=== PATIENT | female | born 1955 | race Caucasian/White ===

== ENCOUNTER → 2020-09-27 09:47 | Outpatient (CLI) | payer OTHER, SELFPAY ==
--- NOTE | 2020-09-27 09:55 | US_ITS ---
APPROVED REPORT Exam Type: Ankle to Brachial Index Skull Splitter: RT Dayne(R) Indications Claudication: Rest Pain: Patient's blood pressure today was 196/108. Patient states she did not take her blood pressure medication today. We advised patient to go to our Emergency Department but she states she will go home and take her medication and re check. We told her if it remains elevated she must report to an ER or call her physician immediately. Risk Factors Hypertension Hyperlipidemia Pressures/Indices Right Indices Left Indices Brachial 195.00 mmHg Brachial 195.00 mmHg Low Thigh 201.00 mmHg 1.03 Low Thigh 218.00 mmHg 1.12 Calf 225.00 mmHg 1.15 Calf 228.00 mmHg 1.17 Ankle(PT) 222.00 mmHg 1.14 Ankle(PT) 226.00 mmHg 1.16 Ankle(DP) 203.00 mmHg 1.04 Ankle(DP) 0.00 mmHg 0.00 Digit 201.00 mmHg 1.03 Digit 205.00 mmHg 1.05 Findings RT YULISSA=1.1 LT YULISSA=1.2 RT TBI=1.0 LT TBI=1.1 Normal waveforms Normal pulses Conclusion RT YULISSA=1.1 LT YULISSA=1.2 RT TBI=1.0 LT TBI=1.1 Normal waveforms Normal pulses Normal appearing resting noninvasive lower extremity arterial study. Electronically signed by : Deniz Ochoa MD 09/27/2020 16:35:58
== END ==
PROVIDERS: PCP Nurse Practitioner Family; Visit Provider Nurse Practitioner Family
DX: I70.213 Atherosclerosis of native arteries of extremities with intermittent claudication, bilateral legs (principal)
CPT/HCPCS: 93923

== ENCOUNTER → 2021-03-28 18:09 | Outpatient (CLI) | payer OTHER, MEDICARE, SELFPAY ==
--- NOTE | 2021-03-28 18:29 | XR_ITS ---
PROCEDURE INFORMATION: Exam: XR Right Elbow Exam date and time: 03/28/2021 6:29 PM Age: 66 years old Clinical indication: Swelling; Elbow; Right; Additional info: Effusion, right elbow TECHNIQUE: Imaging protocol: XR Right elbow. Views: 1 or 2 views. COMPARISON: CR [id number]-RT-3 VIEWS 11/23/2014 2:38 PM FINDINGS: Bones/joints: Normal. Soft tissues: Normal. IMPRESSION: No acute findings.
== END ==
PROVIDERS: PCP Nurse Practitioner Family; Visit Provider Nurse Practitioner Family
DX: M25.421 Effusion, right elbow (principal)
CPT/HCPCS: 73070

== ENCOUNTER → 2021-10-01 08:03 | Outpatient (CLI) | payer MEDICARE, SELFPAY ==
--- NOTE | 2021-10-01 08:06 | US_ITS ---
FINAL REPORT CLINICAL HISTORY: ABN RESULTS OF LIVER FUNCTION STUDIES FINDINGS: Sonographic images of the abdomen were obtained. The liver has increased echogenicity which is consistent with fatty infiltration. There are two echogenic nonshadowing foci within the gallbladder which may represent polyps. There is no evidence of biliary ductal dilatation. The common hepatic duct measures 4 mm, which is within normal limits. Limited images of the pancreas are unremarkable. The spleen size is normal. The right kidney measures 11.1 cm in length. The left kidney measures 10.7 cm in length. There is a right renal cyst measuring 2.5 cm and there are left renal cysts measuring up to 2.7 cm. There is no evidence of hydronephrosis. The aorta has an unremarkable appearance. Limited images of the inferior vena cava are unremarkable. IMPRESSION: Fatty liver. Findings in the gallbladder may represent polyps. Bilateral renal cysts. Reviewed, Interpreted and Dictated by Lan Parekh III, MD Transcribed by Mitzi Nick Authenticated and [facility]
== END ==
PROVIDERS: PCP Nurse Practitioner Family; Visit Provider Nurse Practitioner Family
DX: R94.5 Abnormal results of liver function studies (principal)
CPT/HCPCS: 76700

== ENCOUNTER 2021-10-22 06:46 | Emergency (ER) | payer MEDICARE, SELFPAY ==
--- NOTE | 2021-10-22 | CT_ITS ---
PROCEDURE INFORMATION: Exam: CT Maxillofacial Without Contrast, Sinus Exam date and time: 10/22/2021 7:48 AM Age: 66 years old Clinical indication: Patient HX: Ringing of ears/dizziness TECHNIQUE: Imaging protocol: CT Maxillofacial without contrast. Focus on the sinuses. Radiation optimization: All CT scans at this facility use at least one of these dose optimization techniques: automated exposure control; mA and/or kV adjustment per patient size (includes targeted exams where dose is matched to clinical indication); or iterative reconstruction. COMPARISON: CT (Scanogram, HEAD, Brain 350mm LAT/AP (OUT)) 10/22/2021 7:45 AM FINDINGS: Frontal sinuses: Normal. No air-fluid levels. Ethmoid sinuses: Normal. No air-fluid levels. Sphenoid sinuses: Normal. No air-fluid levels. Maxillary sinuses: Normal. No air-fluid levels. Ostiomeatal units are patent. Nasal cavity: There are mariam bullosa of the middle turbinates bilaterally. There is mild rightward nasal septal deviation with a small spur. Orbital cavities: Orbits are normal. Globes are unremarkable. Bones/joints: Unremarkable. Soft tissues: Unremarkable. IMPRESSION: No significant sinus mucosal disease.
--- NOTE | 2021-10-22 | CT_ITS ---
PROCEDURE INFORMATION: Exam: CT Head Without Contrast Exam date and time: 10/22/2021 7:45 AM Age: 66 years old Clinical indication: Patient HX: Ringing of ears/dizziness TECHNIQUE: Imaging protocol: Computed tomography of the head without contrast. Radiation optimization: All CT scans at this facility use at least one of these dose optimization techniques: automated exposure control; mA and/or kV adjustment per patient size (includes targeted exams where dose is matched to clinical indication); or iterative reconstruction. COMPARISON: No relevant prior studies available. FINDINGS: Brain: There is no acute intracranial hemorrhage or mass effect. Mild diffuse volume loss is within the range of normal for patient age. There are small vessel ischemic changes within the periventricular and subcortical white matter, but the normal kay/white matter delineation is maintained. Chronic appearing lacunar infarcts involve the right basal ganglia. Cerebral ventricles: No ventriculomegaly. Paranasal sinuses: Visualized sinuses are unremarkable. No fluid levels. Mastoid air cells: Visualized mastoid air cells are well aerated. Bones/joints: Unremarkable. No acute fracture. Soft tissues: Unremarkable. IMPRESSION: No acute intracranial hemorrhage or edema.
[2021-10-22 06:46] VITALS: BP 161/88; PULSE 80; RESP 18; TEMP 36.7; O2SAT 97; BMI 24.0
[2021-10-22 07:03] VITALS: BP 153/85; PULSE 81; RESP 18; O2SAT 98
[2021-10-22 07:23] VITALS: BP 147/81; PULSE 75; RESP 18; O2SAT 97
[2021-10-22 08:03] VITALS: BP 139/73; PULSE 72; RESP 18; O2SAT 97
[2021-10-22 08:15] VITALS: BP 146/79; PULSE 68; RESP 18; TEMP 36.7; O2SAT 97
--- NOTE | 2021-10-22 08:15 | PC.NURSE ---
contacted ENT office, spoke with dayan zelaya. Appt made for pt for today at 1130. Appt information relayed to pt daughter who in at [facility].
[2021-10-22 09:49] LABS: Alanine Aminotransferase 76 U/L (12-78); Albumin Level 4.8 g/dl (3.5-5.0); Albumin/Globulin Ratio 1.2 (1.1-1.8); Alkaline Phosphatase 112 U/L (38-126); Anion Gap 16.8 mEq/L (5-15); Aspartate Amino Transferase 74 U/L (14-36); Bilirubin,Total 0.3 mg/dl (0.2-1.3); Blood Urea Nitrogen 19 mg/dl (7-17); C-Reactive Protein 1.8 mg/L (0-4); Calcium 9.7 mg/dl (8.4-10.2); Carbon Dioxide 27 mmol/L (22.0-30.0); Chloride 105 mmol/L (98-107); Estimated Glomerular Filt Rate 84 ml/min (>60); GFR (African American) 102 ML/MIN (>60); Globulin 3.9 g/dL (1.3-3.2); Glucose 161 mg/dl (74-100); NT Pro Brain Natriuretic Pep. 22.3 pg/mL (0-125); Potassium 4.8 mmoL/L (3.5-5.1); Procalcitonin 0.086 ng/mL (0.0-2.0); Sodium 144 mmol/L (136-145); Total Protein,Serum 8.7 g/dl (6.3-8.2)
--- NOTE | 2021-10-22 10:10 | PC.NURSE ---
1010- triage and past medical history entered at time, pt arrived at 0646, pt was triaged and history taken per dayan chapa at that time under downtime procedures. Pt information entered by this nurse when system was back up.
[2021-10-22 10:54] LABS: Hemoglobin 14.1 g/dL (12.2-16.2); Mean Corpuscular HGB Conc 32.7 g/dL (31.8-35.4); Mean Corpuscular Hemoglobin 28.7 pg (27.0-31.2); Mean Corpuscular Volume 87.6 fl (81-99); Mean Platelet Volume 7.7 fl (7.4-10.4); Platelet Count 331 K/mm3 (142-424); Red Blood Count 4.91 M/mm3 (4.20-5.40); Red Cell Distribution Width 12.3 % (11.5-17.5); White Blood Count 7.9 K/mm3 (4.8-10.8)
[2021-10-22 10:55] LABS: Basophils # 0.1 K/mm3 (0-0.2); Eosinophils # 0.1 K/mm3 (0.0-0.4); Eosinophils % 1.2 % (0.1-12.0); Erythrocyte Sedimentation Rate 20 mm/hr (0-30); Lymphocytes # 1.1 K/mm3 (0.7-4.5); Monocytes # 0.2 K/mm3 (0.1-1.0); Monocytes % 2.8 % (1.7-9.3); Neutrophils # 6.4 K/mm3 (1.8-7.8)
--- NOTE | 2021-10-24 07:36 | HMH.EDDIZZ ---
Discharge Plan Disposition Patient Disposition: Home, Self-Care Chief Complaint: Dizziness Prescriptions Prescriptions: No Action rosuvastatin 10 mg tablet 10 mg PO Label Comments: TAKE 1 TABLET BY MOUTH ONCE DAILY FOR CHOLESTEROL valsartan 80 mg tablet 80 mg PO Jardiance 25 mg tablet 25 mg PO Label Comments: TAKE 1 TABLET BY MOUTH ONCE DAILY IN THE MORNING metformin 500 mg tablet 500 mg PO Label Comments: TAKE 1 TABLET BY MOUTH ONCE DAILY WITH BREAKFAST FOR 7 DAYS THEN INCREASE TO 1 TABLET WITH MORNING MEAL AND 1 TABLET WITH EVENING MEAL Clinical Impressions Clinical Impression: Vertigo Instructions Patient Instructions: Vertigo Discharge ED Provider: Dominic Sr HPI General Chief Complaint: Dizziness Stated Complaint: dizzy, weakness, ears ringing Time Seen by Provider: 10/22/21 07:00 Mode of Arrival: Ambulatory Source of Information: Patient, Relative and Medical Record Limitations: No Limitations Description of Symptoms (Recalled from ER Triage Doc. by RN): Pt reports ringing in elizabeth ears, dizzy intermittently for approx 1 month. Pt reports has been prescribed meclizine but states she is not taking it, report is make her more dizzy and drowsy. History of Present Illness HPI Narrative: progressive dizzyness over the last month - no fever or rash or trauma MD complaint: dizziness Onset (ago): week(s) Timing: intermittent History of similar episodes: No History of trauma: No Severity: moderate Associated symptoms: denies other symptoms Related Data Home Medications Medication Instructions Recorded Confirmed empagliflozin 25 mg tablet 25 mg PO 10/15/21 10/22/21 (Jardiance) metformin 500 mg tablet 500 mg PO 10/15/21 10/22/21 rosuvastatin 10 mg tablet 10 mg PO 10/15/21 10/22/21 valsartan 80 mg tablet 80 mg PO 10/15/21 10/22/21 Allergies Allergy/AdvReac Type Severity Reaction Status Date / Time No Known Allergies [facility] Medical History (Updated 10/22/21 @ 12:42 by Lilia Monaco RN) Diabetes Hyperlipidemia Vertigo Social History (Updated 10/22/21 @ 10:11 by Elier Lyman MD) Smoking Status: Never smoker alcohol intake: never substance use type: denies use current occupational status: employed Travel in the last 8 weeks: None ROS Obtained: Yes Systems reviewed as appropriate & no additional complaints except as documented Physical Exam General General appearance: alert Head Head exam: normocephalic Eye Eye exam: Present PERRL and EOMI; Absent nystagmus ENT ENT exam: Present normal oropharynx, mucous membranes dry and TM's normal bilaterally Neck Neck exam: Present full ROM and trachea midline Respiratory Respiratory exam: Present normal lung sounds bilaterally Cardiovascular Cardiovascular exam: Present regular rate, systolic murmur and +S4 Abdominal Exam Abdominal exam: Present soft Extremities Exam Extremities exam: Present full ROM; Absent edema Neurological Exam Neurological exam: Present alert, oriented X3 and CN II-XII intact Psychiatric Psychiatric exam: Present normal affect Skin Skin exam: Absent rash Medical Decision Making Medical Records Medical records reviewed: Yes I reviewed the patient's medical records. Joe Inquiry Pt receiving controlled substance: No Vital Signs: 10/22/21 06:46 10/22/21 07:03 10/22/21 07:23 Temperature 98.0 F Temperature Source Oral Pulse Rate 81 75 Pulse Rate [Right Radial] 80 Respiratory Rate 18 18 18 Blood Pressure 153/85 H 147/81 H Blood Pressure [Right Arm] 161/88 H Blood Pressure Mean [Right Arm] 112 Blood Pressure Source Automatic Cuff Automatic Cuff Blood Pressure Source [Right Arm] Automatic Cuff Blood Pressure Position Sitting Blood Pressure Position [Right Arm] Sitting 02 Sat by Pulse Oximetry 97 98 97 Oxygen Delivery Method Room Air Room Air Room Air 10/22/21 08:
== END 2021-10-22 08:15 | disposition home or self-care (01) ==
LOC: ER 09:30
PROVIDERS: Emergency Provider Emergency Medicine; PCP Nurse Practitioner Family
DX: R42 Dizziness and giddiness (principal); R53.1 Weakness; H93.13 Tinnitus, bilateral
CPT/HCPCS: 70450; 70486; 80053; 83880; 84145; 85025; 85651; 86140; 96374; 99285

== ENCOUNTER → 2022-01-15 07:39 | Outpatient (CLI) | payer MEDICARE, SELFPAY ==
--- NOTE | 2022-01-15 07:39 | US_ITS ---
FINAL REPORT CLINICAL HISTORY: Gallbladder polyp FINDINGS: Ultrasound images of the right upper quadrant were obtained. The liver parenchyma is increased in echogenicity. The gallbladder is well visualized and the wall appears normal. Two polyps are noted in the gallbladder. There are no gallstones. The common duct is normal. There is a 3.0 x 1.4 cm right parapelvic renal cyst. IMPRESSION: Fatty liver. Gallbladder polyps. Parapelvic right renal cyst. Reviewed, Interpreted and Dictated by Irwin Chan MD Transcribed by Vahid Morse Authenticated and [facility]
== END ==
PROVIDERS: PCP Nurse Practitioner Family; Visit Provider Surgery
DX: K82.4 Cholesterolosis of gallbladder (principal)
CPT/HCPCS: 76705

== ENCOUNTER → 2022-07-15 08:04 | Outpatient (CLI) | payer MEDICARE, SELFPAY ==
--- NOTE | 2022-07-15 08:10 | XR_ITS ---
FINAL REPORT TECHNIQUE: Bone densitometry calculations of the lumbar spine and left hip were obtained. CLINICAL HISTORY: post menopausal FINDINGS: Using L1-4, the bone mineral density of the spine is 0.884 g/cm2, corresponding to T-score of -1.5. Using the left hip, the bone mineral density of the femoral neck is 0.637 g/cm2, corresponding to a T-score of -2.5. Using the right hip, the bone mineral density of the femoral neck is 0.727 g/cm2, corresponding to a T-score of -1.8. NOTE: T-score: Standard deviation compared with peak bone mass of young adult mean. *Following the recommendations of the International Society of Bone Densitometry, classification of hip BMD is based on the lower of two T-scores; total hip or femoral neck. IMPRESSION: Osteoporosis: Lowest T-score is at or below -2.5. This patient's T-score meets the World Health Organization criteria for osteoporosis. FRAX was not reported because some of the T-scores are at or below-2.5. Reviewed, Interpreted and Dictated by Lan Parekh III, MD Transcribed by Herminia Urena Authenticated and [facility]
--- NOTE | 2022-07-15 08:10 | MM_ITS ---
PROCEDURE INFORMATION: Exam: Bilateral Screening 3D Mammography Exam date and time: 07/15/2022 8:06 AM Age: 67 years old Clinical indication: Screening mammogram TECHNIQUE: Imaging protocol: Bilateral Screening tomosynthesis and 2D mammography including computer-aided detection (CAD) when performed. COMPARISON: MAMMO SCREENING DIGITAL BILAT 07/25/2014 3:56 PM FINDINGS: MAMMOGRAPHY: Breast composition: There are scattered areas of fibroglandular density. Mass: None. Architectural distortion: No new or suspicious architectural distortion. Calcifications: No new or suspicious calcifications are present Asymmetric density: No new or suspicious asymmetric density is present Skin thickening: None. Axillary adenopathy: None. IMPRESSION: No mammographic evidence of malignancy. Recommend annual screening mammography unless otherwise clinically indicated. ASSESSMENT: BI-RADS category 1: Negative
== END ==
PROVIDERS: PCP Nurse Practitioner Family; Visit Provider Nurse Practitioner Family
DX: Z12.31 Encounter for screening mammogram for malignant neoplasm of breast (principal); Z78.0 Asymptomatic menopausal state; Z13.220 Encounter for screening for lipoid disorders
CPT/HCPCS: 77063; 77067; 77080

== ENCOUNTER → 2022-07-22 08:12 | Outpatient (CLI) | payer MEDICARE, SELFPAY ==
--- NOTE | 2022-07-22 08:12 | US_ITS ---
FINAL REPORT CLINICAL HISTORY: eval gallbladder polyp COMPARISON: 01/15/2022 FINDINGS: GALLBLADDER ULTRASOUND Technique: Ultrasound images of the right upper quadrant were obtained specifically the gallbladder. Findings: Limited images of the liver parenchyma is normal in echogenicity. Again noted are small echogenic foci in the gallbladder, likely polyps. Common bile duct measures 2 mm. There is a 2.4 cm cyst in the lower pole the right kidney. IMPRESSION: Probable gallbladder polyps. Reviewed, Interpreted and Dictated by Lan Parekh III, MD Transcribed by Jessica Toro Authenticated and [facility]
== END ==
PROVIDERS: PCP Nurse Practitioner Family; Visit Provider Surgery
DX: R10.11 Right upper quadrant pain (principal); K82.4 Cholesterolosis of gallbladder
CPT/HCPCS: 76705

== ENCOUNTER 2023-07-19 10:15 | Outpatient (CLI) | payer MEDICARE, SELFPAY ==
--- NOTE | 2023-07-19 10:20 | MM_ITS ---
PROCEDURE INFORMATION: Exam: MG Bilateral Screening 3D Mammography Exam date and time: 07/19/2023 10:18 AM Age: 68 years old Clinical indication: Screening examination . Family history of breast carcinoma. TECHNIQUE: Imaging protocol: Bilateral Screening tomosynthesis and 2D mammography including computer-aided detection (CAD) when performed. COMPARISON: 1. MG MM DIG SCREENING MAMM BI W/CAD 07/15/2022 8:06 AM 2. MG MAMMO SCREENING DIGITAL BILAT 07/25/2014 3:56 PM FINDINGS: MAMMOGRAPHY: Breast composition: There are scattered areas of fibroglandular density. Mass: No suspicious masses. Architectural distortion: No suspicious distortion. Calcifications: No suspicious calcifications. Asymmetric density: None. Skin thickening: None. Axillary adenopathy: None. IMPRESSION: No mammographic evidence of malignancy. Annual screening is recommended unless otherwise clinically indicated. ASSESSMENT: BI-RADS Category 1: Negative
== END 2023-07-19 23:59 | disposition home or self-care (01) ==
LOC: RAD 10:15
PROVIDERS: PCP Nurse Practitioner Family; Visit Provider Nurse Practitioner Family
DX: Z12.31 Encounter for screening mammogram for malignant neoplasm of breast (principal)
CPT/HCPCS: 77063; 77067

== ENCOUNTER 2023-08-02 08:14 | Outpatient (CLI) | payer MEDICARE, SELFPAY ==
--- NOTE | 2023-08-02 08:26 | US_ITS ---
FINAL REPORT CLINICAL HISTORY: gallbladder polyp follow up COMPARISON: None FINDINGS: Sonographic images of the right upper quadrant were obtained. The pancreas is partially obscured.The liver has an unremarkable appearance. There is a 7 mm echogenic focus along the anterior gallbladder which previously measured 4 mm, likely polyp. There is no evidence of biliary ductal dilatation.The common duct measures 3 mm. There is a 2.3 cm lower pole right kidney cyst. IMPRESSION: Gallbladder polyp, increased in size from previous. Right kidney cyst. Reviewed, Interpreted and Dictated by Lan Parekh III, MD Transcribed by Jessica Toro Authenticated and [facility]
== END 2023-08-02 23:59 | disposition home or self-care (01) ==
LOC: RAD 08:15
PROVIDERS: PCP Nurse Practitioner Family; Visit Provider Surgery
DX: K82.4 Cholesterolosis of gallbladder (principal)
CPT/HCPCS: 76705

== ENCOUNTER 2024-02-03 07:45 | Outpatient (CLI) | payer MEDICARE, SELFPAY ==
--- NOTE | 2024-02-03 07:46 | US_ITS ---
FINAL REPORT CLINICAL HISTORY: polyp COMPARISON: 08/02/2023 FINDINGS: Sonographic images of the right upper quadrant were obtained. The pancreas is partially obscured. There is no focal hepatic abnormality. The portal vein is at the upper limits of normal measuring 13 mm. Again noted is an echogenic focus in the gallbladder wall that measures 4 mm. This may represent a polyp or cholesterolosis. The common bile duct measures 3 mm. There is a 1.4 cm probable parapelvic cyst in the right kidney. IMPRESSION: Gallbladder wall focus may represent a polyp or cholesterolosis. Probable parapelvic cyst. Reviewed, Interpreted and Dictated by Lan Parekh III, MD Transcribed by Jonelle Smith Authenticated and [facility]
== END 2024-02-03 23:59 | disposition home or self-care (01) ==
LOC: RAD 07:46
PROVIDERS: PCP Nurse Practitioner Family; Visit Provider Surgery
DX: K82.4 Cholesterolosis of gallbladder (principal)
CPT/HCPCS: 76705

== ENCOUNTER 2024-07-11 07:05 | Outpatient (CLI) | payer MEDICARE, SELFPAY ==
--- NOTE | 2024-07-11 | CA_ITS ---
APPROVED REPORT EXAM: Comprehensive 2D, Doppler, and color-flow Echocardiogram Humane Officer: DORIS Yan, RVS Ht: 5 ft 11 in Wt: 195lbs BSA: 2.09 BP: 145/80 mmHg Rhythm: Abn EKG Indications: SOB, Hx-pleural effusion, HLD, DM 2D Dimensions Left Atrium 3.70 cm F: 2.7 - 3.8 LA Volume 61.20 mL LA Volume Index 29.291434 mL/m2 (M/F) 16-34 EF AP4 54.00 % GL Strain -20.2 % M-Mode Dimensions RVDd 1.77 cm (0.9-2.6) LA Diam 3.91 cm (1.9-4.0) LVDd 4.95 cm (3.5-5.7) LVDs 3.34 cm (3.5-5.7) IVSd 1.09 cm (0.6-1.1) PWd 0.89 cm (0.6-1.1) EF (Teich) 60.70% EPSs 0.69 cm FS 32.50% EDV (Teich) 115.50 mL TAPSE 2.25 (<1.7) ESV (Teich) 45.40 mL LV Diastology E Decel Time 250 (160-240 msec) E/A Ratio 0.83 MED A' 11.30 cm/s LAT A' 11.00 cm/s Aortic Valve DIANA Index 0.79 cm2/m2 AoV Peak Jeovanny. 171.0 (50-130 cm/s) AO Peak GR. 11.60 mmHg AO Mean GR. 6.00 (<5 mmHg) AO VTI 41.3 (18-25 cm) DIANA (VTI) 1.70 (2.5-4.5 cm2) Mitral Valve MV A Velocity 99.0 (40-130 cm/s) E/A Ratio 0.83 MV Mean Gr. 1.60 (<2mmHg) Tricuspid Valve TR P. Velocity 225.00 cm/s RAP Estimate 10.00 mmHg RVSP 30.20 mmHg Left Ventricle The left ventricle is normal size. The left ventricular systolic function is normal. The left ventricular ejection fraction is within the normal range. There is increased LV wall thickness. There is normal LV segmental wall motion. Transmitral Doppler flow pattern suggests impaired LV relaxation. LVEF is 60%. Right Ventricle The right ventricle is normal size. The right ventricular systolic function is normal. Atria Left atrium is mildly dilated. Right atrium is mildly dilated. There is no Doppler evidence of interatrial shunt. Aortic Valve The aortic valve is mildly thickened. There is no aortic valvular stenosis. No aortic regurgitation is present. Mitral Valve The mitral valve is normal in structure. No evidence of mitral valve stenosis. Mild mitral regurgitation. Tricuspid Valve Tricuspid valve is grossly normal in structure and function. There is no tricuspid valve stenosis. Trace tricuspid regurgitation. RVSP is 20-25 mmHg. Pulmonic Valve The pulmonary valve is normal in structure. Trace pulmonic regurgitation. Great Vessels The aortic root is normal in size. IVC is normal in size and collapses >50% with inspiration. Pericardium There is no pericardial effusion. Other Information Study Quality: Adequate Conclusion Normal biventricular systolic function. Mild biatrial dilation. Mild MR, mild TR. Electronically signed by : Janett Saenz MD 07/16/2024 23:18:26
--- NOTE | 2024-07-11 07:15 | CT_ITS ---
PROCEDURE INFORMATION: Exam: CT Chest Without Contrast; Diagnostic Exam date and time: 07/11/2024 7:29 AM Age: 69 years old Clinical indication: Dyspnea; Additional info: Pleural effusion, dyspnea TECHNIQUE: Imaging protocol: Diagnostic computed tomography of the chest without contrast. Radiation optimization: All CT scans at this facility use at least one of these dose optimization techniques: automated exposure control; mA and/or kV adjustment per patient size (includes targeted exams where dose is matched to clinical indication); or iterative reconstruction. COMPARISON: US GALLBLADDER 02/03/2024 8:11 AM FINDINGS: Lungs: The lungs are clear. No acute infiltrates or suspicious pulmonary nodules identified. There is trace atelectasis at each lung base. Pleural spaces: Unremarkable. No pneumothorax. No pleural effusion. Heart: The heart is normal in size. No pericardial effusion. There are aortic valve calcifications. Coronary arteries: There is calcified coronary artery disease. Lymph nodes: Multiple small, benign-appearing axillary and mediastinal lymph nodes which do not reach pathologic size criteria. Vasculature: The thoracic aorta is nonaneurysmal. Liver: Small old calcified granulomas in the right lobe of the liver. Bones/joints: No acute osseous lesions. There is a vertebral hemangioma at T10. Soft tissues: Unremarkable. IMPRESSION: 1. No CT evidence of acute chest pathology. Minor dependent atelectasis of the lung bases. 2. Calcified coronary artery disease.
== END 2024-07-11 23:59 | disposition home or self-care (01) ==
LOC: RAD 07:06
PROVIDERS: PCP Nurse Practitioner Family; Visit Provider Nurse Practitioner Family
DX: J90 Pleural effusion, not elsewhere classified; J98.11 Atelectasis; I25.10 Atherosclerotic heart disease of native coronary artery without angina pectoris; I08.1 Rheumatic disorders of both mitral and tricuspid valves
CPT/HCPCS: 71250; 93306

== ENCOUNTER 2024-07-21 09:30 | Outpatient (CLI) | payer MEDICARE, SELFPAY ==
--- NOTE | 2024-07-21 09:33 | MM_ITS ---
PROCEDURE INFORMATION: Exam: MG Bilateral Screening 3D Mammography Exam date and time: 07/21/2024 9:47 AM Age: 69 years old Clinical indication: Screening examination TECHNIQUE: Imaging protocol: Bilateral Screening tomosynthesis and 2D mammography including computer-aided detection (CAD) when performed. COMPARISON: 1. MG MM DIG SCREENING MAMM BI W/CAD 07/19/2023 10:18 AM 2. MG MM DIG SCREENING MAMM BI W/CAD 07/15/2022 8:06 AM FINDINGS: MAMMOGRAPHY: Breast composition: There are scattered areas of fibroglandular density. Mass: No suspicious masses. Architectural distortion: None. Calcifications: No suspicious calcifications. Asymmetric density: None. Skin thickening: None. Axillary adenopathy: None. IMPRESSION: No mammographic evidence of malignancy. Annual screening is recommended unless otherwise clinically indicated. ASSESSMENT: BI-RADS Category 1: Negative.
== END 2024-07-21 23:59 | disposition home or self-care (01) ==
LOC: RAD 09:30
PROVIDERS: PCP Nurse Practitioner Family; Visit Provider Nurse Practitioner Family
DX: Z12.31 Encounter for screening mammogram for malignant neoplasm of breast (principal); R92.323 Mammographic fibroglandular density, bilateral breasts
CPT/HCPCS: 77063; 77067

== ENCOUNTER 2024-07-28 08:19 | Outpatient (CLI) | payer MEDICARE, SELFPAY ==
--- NOTE | 2024-07-28 08:21 | XR_ITS ---
FINAL REPORT TECHNIQUE: Bone densitometry calculations of the lumbar spine and bilateral hips were obtained. CLINICAL HISTORY: SCREENING COMPARISON: 07/15/2022 FINDINGS: Using L1-4, the bone mineral density of the spine is 0.930 g/cm2, corresponding to T-score of -1.1. Using the left hip, the bone mineral density of the femoral neck is 0.690 g/cm2, corresponding to a T-score of -2.1. Using the right hip, the bone mineral density of the femoral neck is 0.727 g/cm?, corresponding to a T-score of -1.8. NOTE: T-score: Standard deviation compared with peak bone mass of young adult mean. *Following the recommendations of the International Society of Bone densitometry, classification of hip BMD is based on the lower of two T-scores; total hip or femoral neck. IMPRESSION: Diminished bone mineral density of the lumbar spine and bilateral hips consistent with osteopenia. Reviewed, Interpreted and Dictated by Irwin Chan MD Transcribed by Leanne Mc Authenticated and [facility]
== END 2024-07-28 23:59 | disposition home or self-care (01) ==
LOC: RAD 08:19
PROVIDERS: PCP Nurse Practitioner Family; Visit Provider Nurse Practitioner Family
DX: M85.89 Other specified disorders of bone density and structure, multiple sites (principal); Z13.9 Encounter for screening, unspecified
CPT/HCPCS: 77080

== ENCOUNTER 2025-02-08 07:59 | Outpatient (CLI) | payer MEDICARE, SELFPAY ==
--- OUTSIDE RECORDS SUMMARY | 2025-02-08 08:04 | XMS_ITS | Clinical Summary ---
Author Organization Healthcare Address [address] [place] [address] Care Team Providers Care Auto Camp Attendant Name Role Phone Luz Macedo APRN Primary Care Provider + [phone] Immunizations Immunization Administration Dates Next Due Influenza, seasonal, injectable 02/12/2016 Family History Medical History Relation Name Comments Cardiac disorder Father Arthritis Mother Relation Name Status Comments Father Mother Social History Tobacco Use Types Packs/Day Years Used Date Smoking Tobacco: Never Alcohol Use Standard Drinks/Week Comments No 0 (1 standard drink = 0.6 oz pur e alcohol) Comments Unknown Sex and Gender Information Value Date Recorded Sex Assigned at Not on file Legal Sex Female 8:51 PM EDT Gender Identity Not on file Sexual Orientation Not on file Last Filed Vital Signs Vital Sign Reading Time Taken Comments Blood Pressure 175/82 11/26/2017 11:47 AM EDT Pulse 63 11/26/2017 11:47 AM EDT Temperature 36.4 C (97.5 F) 11/26/2017 11:47 AM EDT Respiratory Rate 14 11/26/2017 11:47 AM EDT Oxygen Saturation - - Inhaled Oxygen Concentration - - Weight 79.5 kg (175 lb 4.3 oz) 11/26/2017 11:47 AM EDT Height 180.3 cm (5' 11 ) 11/26/2017 11:47 AM EDT Body Mass Index 24.44 11/26/2017 11:47 AM EDT Plan of Treatment Not on file Care Teams Auto Camp Attendant Relationship Specialty Start Date End Date Luz Macedo APRN [address] [place] [address] PCP - General 07/12/20
--- OUTSIDE RECORDS SUMMARY | 2025-02-08 08:04 | XMS_ITS | Clinical Summary ---
[facility] [address] [place] [id number] Care Team Providers Care Pocket Machine Operator Name Role Phone Melania Hernandes ATIF Primary Care Provider [phone] Allergies No known active allergies Medications levocetirizine (XYZAL) 5 MG tablet Take 1 tablet by mouth Daily. 5 Active rosuvastatin (CRESTOR) 10 MG tablet Take 1 tablet by mouth Daily. for cholesterol 5 Active valsartan (DIOVAN) 160 MG tablet Take 1 tablet by mouth Every Morning. for blood pressure. 5 Active metFORMIN (GLUCOPHAGE) 500 MG tablet Take 1 tablet by mouth 2 (Two) Times a Day With Meals. Active Multiple Vitamins-Minera ls (ABC Complete Womens) tablet tablet Take 1 tablet by mouth Daily. 5 Active calcium carbonate (Calcium 600) 600 MG tablet Take 1 tablet by mouth 2 (Two) Times a Day With Meals. 5 Active alendronate (FOSAMAX) 70 MG tablet Take 1 tablet by mouth 1 (One) Time Per Week. Active aspirin 81 MG oral suspension Take 81 mL by mouth 1 (One) Time. 5 Active montelukast (SINGULAIR) 10 MG tablet Take 1 tablet by mouth Every Night. 5 Active spironolactone (ALDACTONE) 25 MG tablet Take 1 tablet by mouth Daily. 5 Active Januvia 50 MG tablet Take 1 tablet by mouth Daily. for diabetes. 5 Active acetaminophen (Tylenol) 325 MG tablet Take 2 tablets by mouth Every 6 (Six) Hours As Needed. 5 Active Tradjenta 5 MG tablet tablet TAKE 1 TABLET BY MOUTH EVERY DAY FOR FOR DIABETES Active escitalopram (LEXAPRO) 10 MG tablet Take 1 tablet by mouth every night at bedtime. Active Active Problems Problem Noted Date Diagnosed Date Physical deconditioning 10/18/2024 Assessment & Plan (10/18/2024 10:35 AM EDT): 10/04/24 MAXI- Unable to complete related to Shortness of air. 10/10/24 Nuclear Stress Test Low risk. Dyspnea Assessment & Plan (10/18/2024 10:35 AM EDT): 10/04/24 MAXI- Unable to complete related to Shortness of air. 10/10/24 Nuclear Stress Test Low risk. Reports recent normal pulmonary testing in [place] Assessment & Plan (10/04/2024 3:47 PM EDT): -Unable to complete MAXI related to shortness of air -check Edna/Nuclear Diabetes type 2 High cholesterol Assessment & Plan (10/18/2024 10:38 AM EDT): 03/29/2024 labs creatinine normal, cholesterol 142, triglycerides 54, HDL 58, LDL 72, eGFR 62, potassium normal, sodium normal, LFTs normal A1c 5.7, CBC normal. Hypertension Assessment & Plan (10/18/2024 10:37 AM EDT): At goal today. Start walking regimne Osteoporosis Assessment & Plan (10/18/2024 10:37 AM EDT): Start walking regimen Resolved Problems Problem Noted Date Diagnosed Date Resolved Date Chest pain, atypical 10/04/2024 025 Assessment & Plan (10/04/2024 3:47 PM EDT): -Unable to complete MAXI related to shortness of air -check Edna/Nuclear Family History Medical History Relation Name Comments Arthritis Father Diabetes type II Father HTN Father Hyperlipidemia Father Breast cancer Maternal Grandmother HTN Mother Kidney disease Mother Diabetes Sister Stroke Sister Relation Name Status Comments Father Maternal Grandmother Mother Sister Social History Tobacco Use Types Packs/Day Years Used Date Smoking Tobacco: Never Passive Smoke Exposure: Never Smokeless Tobacco: Never Tobacco Cessation:Counseling Given: Not Answered Alcohol Use Standard Drinks/Week Comments Never 0 (1 standard drink = 0.6 oz pur e alcohol) Abuse Screen Answer Date Recorded Unsafe at Home or Work/School Not on file Feels Threatened by Someone? Not on file 10/2022 Does Anyone Keep You from Co ntacting Others or Doint Things Outside the Home? Not on file 12/07/2022 Physical Sign of Abuse Present Not on file 1 Housing Stability Answer Date Recorded Current Living Arrangements Not on file 10/2022 Potentially Unsafe Housing Conditions Not on christa e 12/07/2022 Family and Community Support Answer Jose Carlos e Recorded Help with Day-to-Day Activities Not on file 12/07/2022 Lonely or Isolated Not on file 12/07/2022 Employment Answer Date Recorded Do you want help finding or keeping work or a nilson b? Not on file 12/07/2022 Disabilities Answer Date Recorded Concentrating, Remembering, or Making Decisions Difficulty Not on file 12/07/2022 Doing Errands Independently Difficulty Not on fi le 12/07/2022 Education Answer Date Recorded Help with school or training? Not on file Preferred Language Not on file 12/07/2022 Comments No Sex and Gender Information Value Date Recorded Sex Assigned at Female 08/23/2024 11:09 AM EDT Legal Sex Female 11:12 AM EDT Gender Identity Not on file Sexual Orientation Straight 08/23/2024 11 :09 AM EDT Last Filed Vital Signs Vital Sign Reading Time Taken Comments Blood Pressure 128/66 10/18/2024 9:42 AM EDT Pulse 73 10/18/2024 9:42 AM EDT Temperature 36.4 C (97.6 F) 05/14/2018 3:11 PM EDT Respiratory Rate 16 05/14/2018 3:11 PM EDT Oxygen Saturation 95% 10/18/2024 9:42 AM EDT Inhaled Oxygen Concentration - - Weight 85.7 kg (188 lb 14.4 oz) 10/18/2024 9:42 AM EDT Height 180.3 cm (5' 11 ) 10/18/2024 9:42 AM EDT Body Mass Index 26.35 10/18/2024 9:42 AM EDT Plan of Treatment Health Maintenance Due Date Last Done Comments DXA SCAN 1955 LIPID PANEL 1955 DIABETIC EYE EXAM 02/04/1966 DIABETIC FOOT EXAM 02/04/1966 URINE MICROALBUMIN-CREATININ E RATIO (uACR) 02/04/1966 TDAP/TD VACCINES (1 - Tdap) 02/04/1975 MAMMOGRAM 1996 COLOGUARD 02/04/2001 COLON CANCER SCREENING 5 YEA R SIGMOIDOSCOPY 02/04/2001 COLONOSCOPY 02/04/2001 COLORECTAL CANCER SCREENING 02/04/2001 CT COLONOGRAPHY 02/04/2001 FECAL OCCULT BLOOD TEST 02/04/2001 FIT Testing (1 year) 02/04/2001 ANNUAL WELLNESS VISIT 05/14/2018 HEPATITIS C SCREENING 05/14/2018 Pneumococcal Vaccine 50+ (2 of 2 - PCV) 03/28/2022 03/28/2021 HEMOGLOBIN A1C 06/16/2024 12/17/2023 INFLUENZA VACCINE 09/29/2024 12/14/2023, , 12/17/2021, Additional history exists COVID-19 Vaccine (2024-2 6 season) 2024 11/22/2021, 03/27/2021, 03/13/2020, Additional history exists ZOSTER VACCINE Completed 05/21/2021, 02/01/2021 Insurance Care Teams Pocket Machine Operator Relationship Specialty Start Date End Date Melania Hernandes APRN [address] [place] [address] PCP - General Nurse Practitioner 05/14/18
--- OUTSIDE RECORDS SUMMARY | 2025-02-08 08:04 | XMS_ITS | Encounter Summary ---
[facility] [address] [place] [address] Care Team Providers Care Pan Shover Name Role Phone Melania Hernandes VENTILATING EXPERT Primary Care Provider [phone] Encounter Details Date Type Department Care Team (Late st Contact Info) Description 09/12/2024 Results Follow-Up [facility] [address] [place] [address] Lucía Gtz APRN [address] [place] [address] Social History Tobacco Use Types Packs/Day Years Used Date Smoking Tobacco: Never Passive Smoke Exposure: Never Smokeless Tobacco: Never Alcohol Use Standard Drinks/Week Comments Never 0 [...] Preferred Language Not on file 12/07/2022 Comments Unknown Sex and Gender Information Value Date Recorded Sex Assigned at Female 08/23/2024 11:09 AM EDT Legal Sex Female 11:12 AM EDT Gender Identity Not on file Sexual Orientation Straight 08/23/2024 11 :09 AM EDT documented as of this encounter Progress Notes * Lucía Gtz APRN - 09/12/2024 3:38 PM EDT Please call the patient regarding his/her abnormal result. Please let patient know severe LILIAN, AHI 36 elevates to 61 in REM. Please review benefits of CPAP therapy. Also review risks of untreated OSAsuch as a fib, difficulty losing weight, CHF, and memory loss over time. Also emphasize risk of sleep related driving accidents with untreated LILIAN being nearly as high as drunk driving accidents. If patient is willing to try pap therapy please let me know what DME to send orders to. Thank you. documented in this encounter Miscellaneous Notes * Telephone Encounter - Andreina Ellis MA - 09/13/2024 9:38 AM EDT Spoke to patient, went over results and risk/benefits of sleep apnea. Patient stated she did not want to wear a machine at night she couldn't do it. Patient wants to discuss different options and would like to discuss this at her follow up when her daughter is with her. documented in this encounter Plan of Treatment Not on file documented as of this encounter Visit Diagnoses Not on filedocumented in this encounter Care Teams Pan Shover Relationship Specialty Start Date End Date Melania Hernandes APRN [address] [place] [address] PCP - General Nurse Practitioner 05/14/18 documented as of this encounter
--- NOTE | 2025-02-08 08:30 | US_ITS ---
FINAL REPORT CLINICAL HISTORY: gallbladder polyp COMPARISON: 02/03/2024 report only FINDINGS: Sonographic images of the right upper quadrant were obtained. The pancreas is partially obscured.The liver has an unremarkable appearance. There is an echogenic nonshadowing focus in the gallbladder consistent with polyp. Gallbladder wall thickness is within normal limits. There is no evidence of biliary ductal dilatation.The common duct measures 2 mm. A 2.0 x 1.7 cm hypoechoic focus in the lower pole of the right kidney does not appear to represent a simple cyst. By report, the previously noted focus in the right kidney measured 1.4 cm. IMPRESSION: Gallbladder polyp. 2.0 cm focus lower pole right kidney does not appear to represent a simple cyst. Recommend pre and post infusion CT to better evaluate. Reviewed, Interpreted and Dictated by Irwin Chan MD Transcribed by Jessica Toro Authenticated and [facility]
== END 2025-02-08 23:59 | disposition home or self-care (01) ==
LOC: RAD 08:00
PROVIDERS: PCP Nurse Practitioner Family; Visit Provider Surgery
DX: K82.4 Cholesterolosis of gallbladder (principal); R93.421 Abnormal radiologic findings on diagnostic imaging of right kidney
CPT/HCPCS: 76705